=== PATIENT | male | born 1955 ===

== ENCOUNTER 2021-03-22 12:42 | Inpatient (IN) | payer MEDICARE ==
[~2021-03-22] VITALS: Ht 190.5 cm; Wt 107.8 kg
[~2021-03-22 12:42] MED LIST: ASPI325T20 PO; ATEN100T PO; BACL-19 PO; CARV3.1212 PO; CITA10TA4 PO; ENAL20TA9 PO; ESOM40CA PO; FINA5TAB4 PO; HYDR25TA6 PO; LAMO200T6 PO; LISI5TAB7 PO; METF500T17 PO; RIVA20TA PO; SIMV40TA20 PO
[2021-03-22 15:15] VITALS: BP 102/63
[2021-03-22] MEDS ORDERED: RIVAROXABAN 20 MG TABLET PO SCH (17:00)
[2021-03-22] MEDS ORDERED: metFORMIN 500 MG TABLET PO SCH (17:00)
[2021-03-22] MEDS ORDERED: ONDANSETRON ODT 4 MG PO PRN (17:00)
[2021-03-22] MEDS ORDERED: ACETAMINOPHEN 325 MG TABLET PO PRN (17:00)
[2021-03-22 17:01] LABS: CLOSTRIDIUM DIFFICILE ANTIGEN POSITIVE; CLOSTRIDIUM DIFFICILE TOXIN NEGATIVE (Negative)
[2021-03-22] MEDS ORDERED: CARVEDILOL 3.125 MG TABLET PO SCH (18:00)
[2021-03-22] MEDS ORDERED: INSULIN LISPRO 100 UNITS/ML, PEN SQ-INSULIN SCH (21:00)
[2021-03-22] MEDS ORDERED: LACTOBACILLUS CHEW TABLET PO SCH (21:00)
[2021-03-22] MEDS ORDERED: SIMVASTATIN 40 MG TABLET PO SCH (21:00)
[2021-03-23] MEDS ORDERED: ATENOLOL 100 MG TABLET PO SCH (06:00)
[2021-03-23] MEDS ORDERED: PANTOPRAZOLE 40MG TABLET PO SCH (06:00)
[2021-03-23] MEDS ORDERED: ASPIRIN 325 MG TABLET PO SCH (06:00)
[2021-03-23] MEDS ORDERED: FINASTERIDE 5 MG TABLET PO SCH (09:00)
[2021-03-23] MEDS ORDERED: ENALAPRIL 20MG TABLET PO SCH (09:00)
[2021-03-24] MEDS ORDERED: LOPE2CAP PO (14:21)
[2021-03-24] MEDS ORDERED: GLIP5TAB10 PO (14:22)
== END 2021-03-22 19:45 | disposition short-term general hospital (02) | DRG 885 ==
LOC: 3E 15:35
PROVIDERS: ADMIT Psychiatry & Neurology Psychosomatic Medicine; ATTEND Psychiatry & Neurology Psychosomatic Medicine
DX: F33.2 Major depressive disorder, recurrent severe without psychotic features (principal); R45.851 Suicidal ideations; I25.10 Atherosclerotic heart disease of native coronary artery without angina pectoris; I25.2 Old myocardial infarction; Z86.73 Personal history of transient ischemic attack (TIA), and cerebral infarction without residual deficits; E11.9 Type 2 diabetes mellitus without complications; G89.4 Chronic pain syndrome; K21.9 Gastro-esophageal reflux disease without esophagitis; N31.9 Neuromuscular dysfunction of bladder, unspecified; R27.0 Ataxia, unspecified; L89.90 Pressure ulcer of unspecified site, unspecified stage; I10 Essential (primary) hypertension
CPT/HCPCS: 82962; 87324; 87493

== ENCOUNTER 2021-03-28 00:55 | Inpatient (IN) | payer MEDICARE ==
[~2021-03-28] VITALS: Ht 188 cm; Wt 115.1 kg
[~2021-03-28 00:55] MED LIST changes: +GLIP5TAB10 PO; +LOPE2CAP PO
[2021-03-28] MEDS ORDERED: DEXTROSE 50%, 50ML SYRINGE IVPush PRN (01:30)
[2021-03-28] MEDS ORDERED: DEXTROSE 4 GM TAB.CHEW PO PRN (01:30)
[2021-03-28] MEDS ORDERED: PHARMACY MAY ADJ FOR RENAL FX MC SCH (01:30)
[2021-03-28] MEDS ORDERED: GLUCAGON 1 MG IM PRN (01:30)
[2021-03-28] MEDS ORDERED: SODIUM BICARB 8.4%, 50ML SYRINGE ONE (01:35)
[2021-03-28] MEDS ORDERED: POTASSIUM CHLORIDE 20 MEQ in SODIUM CHLORIDE 0.9% 250 ML IV ONE (02:00)
[2021-03-28] MEDS ORDERED: LACTATED RINGERS 1,000 ML IV SCH (02:00)
[2021-03-28] MEDS ORDERED: SODIUM BICARBONATE 1 MEQ/ML, 50ML VIAL IVPush ONE (02:00)
[2021-03-28 02:56] LABS: INTERNATIONAL NORMALIZED RATIO 1.27 (0.93-1.1); PROTHROMBIN TIME 13.4 Seconds (9.6-11.5)
[2021-03-28] MEDS: NOREPINEPHRINE 32 MG in SODIUM CHLORIDE 0.9% 218 ML IV PRN ×2 (04:00→13:02)
[2021-03-28] MEDS ORDERED: PROPOFOL 100 ML IV ONE (06:07)
[2021-03-28] MEDS ORDERED: morphine SULFATE 10 MG/ML, 1ML ONE (07:10)
[2021-03-28 07:26] LABS: MEAN CORPUSCULAR HEMOGLOBIN 29.1 pg (27.5-34.5); MEAN CORPUSCULAR HGB CONC 33.1 g/dL (33.2-36.2); MEAN PLATELET VOLUME 10.3 fL (7.4-10.4); PLATELET COUNT 312 x10^3/uL (130-400); RED BLOOD COUNT 4.64 x10^6/uL (4.38-5.82); RED CELL DISTRIBUTION WIDTH 13.4 % (9.4-14.8)
[2021-03-28] MEDS ORDERED: morphine SULFATE 10 MG/ML, 1ML IVPush ONE (07:30)
[2021-03-28] MEDS ORDERED: LORazepam 2 MG/ML, 1ML IVPush ONE (07:30)
[2021-03-28 07:33] LABS: ALANINE AMINOTRANSFERASE 267 U/L (12-78); ALBUMIN 1.8 g/dL (3.4-5.0); ANION GAP 10 mmol/L (5-15); CALCIUM 7.9 mg/dL (8.5-10.1); CHLORIDE 106 mmol/L (98-107); CREATININE 1.82 mg/dL (0.7-1.3)
[2021-03-28 07:46] LABS: ALKALINE PHOSPHATASE 253 U/L (45-117); BILIRUBIN,TOTAL 0.3 mg/dL (0.2-1.0); TOTAL PROTEIN 5.4 g/dL (6.4-8.2)
[2021-03-28] MEDS: SODIUM CHLORIDE FLUSH 10ML SYR IVF SCH ×2 (07:48→20:53)
[2021-03-28] MEDS: PIPERACILLIN/TAZO 3.375 GM in DEXTROSE 5% 50 ML IVPB SCH ×3 (07:49→23:23)
[2021-03-28 08:18] LABS: BAND#(MANUAL) 3.57 x10^3/uL; BANDS%(MANUAL) 15 % (0-7); MONOS#(MANUAL) 0.71 x10^3/uL (0.3-2.7); MONOS% (MANUAL) 3 % (2-9)
[2021-03-28 08:19] LABS: LYMPH#(MANUAL) 0.71 x10^3/uL (1-3.4); LYMPHS% (MANUAL) 3 % (22-44); SEGS% (MANUAL) 79 % (42-75)
[2021-03-28 08:20] LABS: <PLATELET ESTIMATE> ADEQUATE; <RBC MORPHOLOGY> NORMAL; LARGE PLATELETS 1+
[2021-03-28] MEDS: AMIODARONE 450 MG in DEXTROSE 5% 241 ML IV PRN (09:30)
[2021-03-28] MEDS ORDERED: FILTER 0.22 MICRON IV ONE (09:30)
[2021-03-28] MEDS: PROPOFOL 100 ML IV PRN ×3 (09:37→21:43)
[2021-03-28] MEDS ORDERED: SODIUM CHLORIDE 0.9% 1,000ML IVBOLUS ONE (10:00)
[2021-03-28] MEDS: ASPIRIN 81 MG TABLET CHEW PO SCH (11:41)
[2021-03-28 15:26] LABS: MICROSCOPIC INDICATED
[2021-03-28] MEDS: INSULIN LISPRO 100 UNITS/ML, PEN SQ-INSULIN SCH ×2 (16:59→21:37)
[2021-03-28] MEDS: HEPARIN 5,000 UNITS/ML, 1ML SQ SCH (18:05)
[2021-03-28] MEDS: ATORVASTATIN 40 MG TABLET PO SCH (21:28)
[2021-03-29] MEDS: AMIODARONE 450 MG in DEXTROSE 5% 241 ML IV PRN ×2 (00:38→16:03)
[2021-03-29] MEDS: HEPARIN 5,000 UNITS/ML, 1ML SQ SCH ×3 (01:10→17:54)
[2021-03-29] MEDS: PROPOFOL 100 ML IV PRN ×5 (02:26→17:51)
[2021-03-29 06:32] LABS: MEAN CORPUSCULAR HEMOGLOBIN 29.6 pg (27.5-34.5); MEAN CORPUSCULAR HGB CONC 34.8 g/dL (33.2-36.2); MEAN PLATELET VOLUME 10.6 fL (7.4-10.4); PLATELET COUNT 225 x10^3/uL (130-400); RED CELL DISTRIBUTION WIDTH 13.1 % (9.4-14.8)
[2021-03-29 06:46] LABS: ALANINE AMINOTRANSFERASE 177 U/L (12-78); ALBUMIN 1.7 g/dL (3.4-5.0); ANION GAP 6 mmol/L (5-15); BILIRUBIN, DIRECT 0.1 mg/dL (0.1-0.2); CALCIUM 7.9 mg/dL (8.5-10.1); CHLORIDE 107 mmol/L (98-107); CREATININE 2.21 mg/dL (0.7-1.3)
[2021-03-29 06:56] LABS: <PLATELET ESTIMATE> ADEQUATE; <RBC MORPHOLOGY> NORMAL; BANDS%(MANUAL) 5 % (0-7); LARGE PLATELETS 1+; LYMPH#(MANUAL) 1.67 x10^3/uL (1-3.4); LYMPHS% (MANUAL) 12 % (22-44); MONOS#(MANUAL) 1.53 x10^3/uL (0.3-2.7); MONOS% (MANUAL) 11 % (2-9); SEG#(MANUAL) 10.01 x10^3/uL (1.8-6.8); SEGS% (MANUAL) 72 % (42-75)
[2021-03-29] MEDS ORDERED: FILTER 0.22 MICRON IV SCH (07:00)
[2021-03-29 07:03] LABS: ALKALINE PHOSPHATASE 172 U/L (45-117); BILIRUBIN,INDIRECT 0.4 mg/dL (0.0-2.0); BILIRUBIN,TOTAL 0.5 mg/dL (0.2-1.0); TOTAL PROTEIN 5.4 g/dL (6.4-8.2)
[2021-03-29] MEDS ORDERED: POTASSIUM CHLORIDE 20 MEQ PACKET PO ONE (07:30)
[2021-03-29] MEDS: PIPERACILLIN/TAZO 3.375 GM in DEXTROSE 5% 50 ML IVPB SCH ×2 (09:47→17:51)
[2021-03-29] MEDS: FENTANYL PF 100 MCG/2ML IVPush PRN ×5 (10:00→14:29)
[2021-03-29] MEDS: ASPIRIN 81 MG TABLET CHEW PO SCH (10:03)
[2021-03-29] MEDS: SODIUM CHLORIDE FLUSH 10ML SYR IVF SCH ×2 (10:03→21:43)
[2021-03-29] MEDS: PANTOPRAZOLE 40 MG IV IVPush SCH (10:04)
[2021-03-29] MEDS: INSULIN LISPRO 100 UNITS/ML, PEN SQ-INSULIN SCH ×3 (10:06→21:00)
[2021-03-29] MEDS: NOREPINEPHRINE 32 MG in SODIUM CHLORIDE 0.9% 218 ML IV PRN (14:30)
[2021-03-29] MEDS: ATORVASTATIN 40 MG TABLET PO SCH (21:46)
[2021-03-30] MEDS: PIPERACILLIN/TAZO 3.375 GM in DEXTROSE 5% 50 ML IVPB SCH ×3 (02:07→17:50)
[2021-03-30] MEDS: PROPOFOL 100 ML IV PRN ×2 (02:07→05:54)
[2021-03-30] MEDS: HEPARIN 5,000 UNITS/ML, 1ML SQ SCH ×3 (02:12→17:50)
[2021-03-30] MEDS: INSULIN LISPRO 100 UNITS/ML, PEN SQ-INSULIN SCH ×4 (03:07→20:28)
[2021-03-30 04:37] LABS: BASOPHILS % (AUTO) 1 % (0-1); EOSINOPHILS % (AUTO) 1 % (1-7); LYMPHOCYTES % (AUTO) 12 % (22-44); MEAN CORPUSCULAR HGB CONC 34.7 g/dL (33.2-36.2); MEAN PLATELET VOLUME 10.1 fL (7.4-10.4); MONOCYTES % (AUTO) 6 % (2-9); NEUTROPHILS % (AUTO) 80 % (42-75); PLATELET COUNT 177 x10^3/uL (130-400); RED BLOOD COUNT 2.95 x10^6/uL (4.38-5.82); RED CELL DISTRIBUTION WIDTH 13.4 % (9.4-14.8)
[2021-03-30 04:47] LABS: ANION GAP 5 mmol/L (5-15); CALCIUM 7.6 mg/dL (8.5-10.1); CHLORIDE 108 mmol/L (98-107); CREATININE 2.27 mg/dL (0.7-1.3)
[2021-03-30] MEDS ORDERED: POTASSIUM CHLORIDE 20 MEQ PACKET PO ONE (06:30)
[2021-03-30] MEDS: AMIODARONE 450 MG in DEXTROSE 5% 241 ML IV PRN ×2 (07:16→23:43)
[2021-03-30] MEDS ORDERED: PROPOFOL 10 MG/ML, 100ML IV ONE (08:00)
[2021-03-30] MEDS ORDERED: MIDAZOLAM 1 MG/ML, 5ML ONE (08:00)
[2021-03-30] MEDS ORDERED: ETOMIDATE 20 MG/10 ML ONE (08:00)
[2021-03-30] MEDS: SODIUM CHLORIDE FLUSH 10ML SYR IVF SCH ×2 (09:00→20:23)
[2021-03-30] MEDS: ASPIRIN 81 MG TABLET CHEW PO SCH (09:09)
[2021-03-30] MEDS: PANTOPRAZOLE 40 MG IV IVPush SCH (09:09)
[2021-03-30] MEDS ORDERED: ALBUTEROL/IPRATROPIUM 2.5MG/0.5MG, 3 ML ONE (13:55)
[2021-03-30] MEDS ORDERED: LIDODERM 5% PATCH TD SCH (17:30)
[2021-03-30] MEDS: LACTULOSE 20 GM/30 ML UDC PO SCH (20:23)
[2021-03-30] MEDS: ATORVASTATIN 40 MG TABLET PO SCH (20:23)
[2021-03-30] MEDS: ACETAMINOPHEN 325 MG TABLET PO SCH (21:25)
[2021-03-31] MEDS ORDERED: AMIODARONE 150 MG in DEXTROSE 5% 100 ML IV ONE (02:00)
[2021-03-31] MEDS: PIPERACILLIN/TAZO 3.375 GM in DEXTROSE 5% 50 ML IVPB SCH ×2 (02:13→09:18)
[2021-03-31] MEDS ORDERED: FENTANYL PF 100 MCG/2ML IVPush PRN (02:30)
[2021-03-31] MEDS: PROPOFOL 100 ML IV PRN ×2 (02:30→07:01)
[2021-03-31] MEDS ORDERED: LIDOCAINE-MPF 1%, 2ML ENDO PRN (02:30)
[2021-03-31] MEDS ORDERED: PHARMACY MAY ADJ FOR RENAL FX MC SCH (02:30)
[2021-03-31] MEDS: INSULIN LISPRO 100 UNITS/ML, PEN SQ-INSULIN SCH ×2 (03:00→09:00)
[2021-03-31] MEDS: HEPARIN 5,000 UNITS/ML, 1ML SQ SCH ×2 (03:27→09:06)
[2021-03-31 04:24] LABS: ANION GAP 12 mmol/L (5-15); CALCIUM 8.2 mg/dL (8.5-10.1); CHLORIDE 106 mmol/L (98-107); CREATININE 2.47 mg/dL (0.7-1.3)
[2021-03-31 04:54] LABS: MEAN CORPUSCULAR HEMOGLOBIN 29.3 pg (27.5-34.5); MEAN CORPUSCULAR HGB CONC 33.7 g/dL (33.2-36.2); MEAN PLATELET VOLUME 9.6 fL (7.4-10.4); PLATELET COUNT 287 x10^3/uL (130-400); RED CELL DISTRIBUTION WIDTH 13.7 % (9.4-14.8)
[2021-03-31 05:56] LABS: BAND#(MANUAL) 0.24 x10^3/uL; BANDS%(MANUAL) 1 % (0-7); MONOS#(MANUAL) 0.73 x10^3/uL (0.3-2.7); MONOS% (MANUAL) 3 % (2-9); SEG#(MANUAL) 23.33 x10^3/uL (1.8-6.8); SEGS% (MANUAL) 96 % (42-75)
[2021-03-31 05:57] LABS: <PLATELET ESTIMATE> ADEQUATE; <PLT MORPHOLOGY> NORMAL PLT MORPH; POLYCHROMASIA 1+
[2021-03-31] MEDS: ACETAMINOPHEN 325 MG TABLET PO SCH (06:00)
[2021-03-31] MEDS ORDERED: MAGNESIUM SULFATE PMX 2GM/50ML 50 ML ONE (06:59)
[2021-03-31] MEDS ORDERED: MAGNESIUM SULFATE PMX 2GM/50ML 50 ML IV ONE (07:00)
[2021-03-31] MEDS ORDERED: POTASSIUM CHLORIDE PMX 100 ML IV ONE (07:30)
[2021-03-31] MEDS ORDERED: FUROSEMIDE 100 MG in SODIUM CHLORIDE 0.9% 90 ML IV PRN ×2 (07:30→08:30)
[2021-03-31] MEDS ORDERED: FUROSEMIDE 40 MG/4 ML IV ONE (07:30)
[2021-03-31] MEDS: SODIUM CHLORIDE FLUSH 10ML SYR IVF SCH ×2 (09:00→20:59)
[2021-03-31] MEDS: PANTOPRAZOLE 40 MG IV IVPush SCH (09:05)
[2021-03-31] MEDS: LACTULOSE 20 GM/30 ML UDC PO SCH (09:05)
[2021-03-31] MEDS: ASPIRIN 81 MG TABLET CHEW PO SCH (09:05)
[2021-03-31] MEDS ORDERED: LORazepam 2 MG/ML, 1ML IV ONE (13:00)
[2021-03-31] MEDS ORDERED: MORPHINE SULFATE 4 MG/ML, 1ML IV ONE (13:00)
[2021-03-31] MEDS: LORazepam 2 MG/ML, 1ML IVPush PRN ×6 (13:54→20:59)
[2021-03-31] MEDS: MORPHINE SULFATE 4 MG/ML, 1ML IVPush PRN ×7 (13:54→21:50)
[2021-03-31] MEDS ORDERED: ATROPINE OPHTH SOLN 1%, 2ML MM PRN (23:30)
[2021-03-31] MEDS ORDERED: morphine SULFATE 10 MG/ML, 1ML ONE (23:56)
[2021-04-01] MEDS: MORPHINE SULFATE 4 MG/ML, 1ML IVPush PRN
== END 2021-04-01 02:38 | disposition expired ==
LOC: UNDOADMIN 00:55 → CCU 00:55 → 4NW 03-31 21:38
PROVIDERS: ADMIT Family Medicine; ATTEND Hospitalist
PROC: 5A1945Z Respiratory Ventilation, 24-96 Consecutive Hours (ICD-10-PCS; principal; 2021-03-28)
PROC: 0BH17EZ Insertion of Endotracheal Airway into Trachea, Via Natural or Artificial Opening (ICD-10-PCS; 2021-03-28)
PROC: 0T9B70Z Drainage of Bladder with Drainage Device, Via Natural or Artificial Opening (ICD-10-PCS; 2021-03-28)
PROC: 02HV33Z Insertion of Infusion Device into Superior Vena Cava, Percutaneous Approach (ICD-10-PCS; 2021-03-28)
PROC: B548ZZA Ultrasonography of Superior Vena Cava, Guidance (ICD-10-PCS; 2021-03-28)
PROC: 5A12012 Performance of Cardiac Output, Single, Manual (ICD-10-PCS; 2021-03-28)
PROC: 5A1935Z Respiratory Ventilation, Less than 24 Consecutive Hours (ICD-10-PCS; 2021-03-30)
PROC: 0BH17EZ Insertion of Endotracheal Airway into Trachea, Via Natural or Artificial Opening (ICD-10-PCS; 2021-03-30)
PROC: 5A09357 Assistance with Respiratory Ventilation, Less than 24 Consecutive Hours, Continuous Positive Airway Pressure (ICD-10-PCS; 2021-03-30)
PROC: 0B938ZZ Drainage of Right Main Bronchus, Via Natural or Artificial Opening Endoscopic (ICD-10-PCS; 2021-03-31)
PROC: 0B9B8ZZ Drainage of Left Lower Lobe Bronchus, Via Natural or Artificial Opening Endoscopic (ICD-10-PCS; 2021-03-31)
PROC: 0B968ZZ Drainage of Right Lower Lobe Bronchus, Via Natural or Artificial Opening Endoscopic (ICD-10-PCS; 2021-03-31)
PROC: 5A2204Z Restoration of Cardiac Rhythm, Single (ICD-10-PCS; 2021-03-31)
DX: I47.2 Ventricular tachycardia (principal); J96.01 Acute respiratory failure with hypoxia; I21.9 Acute myocardial infarction, unspecified; J69.0 Pneumonitis due to inhalation of food and vomit; N17.0 Acute kidney failure with tubular necrosis; K85.90 Acute pancreatitis without necrosis or infection, unspecified; I50.23 Acute on chronic systolic (congestive) heart failure; Z99.11 Dependence on respirator [ventilator] status; Z66 Do not resuscitate; I49.01 Ventricular fibrillation; D64.9 Anemia, unspecified; E11.65 Type 2 diabetes mellitus with hyperglycemia; E78.5 Hyperlipidemia, unspecified; I46.9 Cardiac arrest, cause unspecified; F32.9 Major depressive disorder, single episode, unspecified; G89.4 Chronic pain syndrome; I11.0 Hypertensive heart disease with heart failure; I25.10 Atherosclerotic heart disease of native coronary artery without angina pectoris; I25.5 Ischemic cardiomyopathy; I44.7 Left bundle-branch block, unspecified; I46.2 Cardiac arrest due to underlying cardiac condition; N31.9 Neuromuscular dysfunction of bladder, unspecified; Z51.5 Encounter for palliative care; Z87.891 Personal history of nicotine dependence; I69.393 Ataxia following cerebral infarction; Z68.32 Body mass index [BMI] 32.0-32.9, adult
CPT/HCPCS: 31624; 36415; 36573; 36600; 71045; 74018; 74176; 76700; 80048; 80053; 80076; 81001; 82803; 82962; 83036; 83690; 83735; 84100; 84443; 84478; 84484; 85014; 85018; 85025; 85610; 85730; 87040; 87070; 87081; 87205; 92950; 93005; 94002; 94003; 94660; C8929; G0378; J1644; J1940; J2250; J2543; J2704; J3010; J3480; J7060; Q9957; C1751; C9113; J0282; J1815; J2060; J2270; J3475; J7030; J7050